=== PATIENT | female | born 1995 | race Caucasian/White ===

== ENCOUNTER 2020-09-27 18:53 | Emergency (ER) | payer OTHER ==
[2020-09-27 19:01] VITALS: RESP 20; TEMP 98.7
--- NOTE | 2020-09-27 19:34 | ED ---
General Adult HPI - General Chief complaint: Shortness of Breath Stated complaint: Covid+/sob Time Seen by Provider: 09/27/20 19:24 Source: patient, RN notes reviewed Mode of arrival: ambulatory Limitations: no limitations - History of Present Illness Initial comments: Patient is a 25-year-old female that presents to emergency department status post Covid positive test. She noted that she started showing symptoms last Friday, but was tested on Friday results on Friday. She went to [facility] and they discharged her with dexamethasone, rivaroxaban, and clindamycin. Sheis she has been feeling better over the last 10 days. She was in no apparent distress or pain while sitting up in bed during exam and interview. She noted that she's not short of breath at the moment it more exertional. She denied any chest pain headache nausea vomiting diarrhea constipation fever fatigue chills. - Related Data Home Medications Medication Instructions Recorded Confirmed No Known Home Medications 09/27/20 09/27/20 Allergies Allergy/AdvReac Type Severity Reaction Status Date / Time No Known Allergies Allergy Verified 09/27/20 21:24 Review of Systems ROS Statement: Those systems with pertinent positive or pertinent negative responses have been documented in the HPI. ROS Other: All systems not noted in ROS Statement are negative. Past Medical History Past Medical History: No Reported History History of Any Multi-Drug Resistant Organisms: None Reported Past Surgical History: No Surgical Hx Reported Past Psychological History: No Psychological Hx Reported Smoking Status: Never smoker Past Alcohol Use History: None Reported Past Drug Use History: None Reported General Exam Limitations: no limitations General appearance: alert, in no apparent distress, obese Head exam: Present: atraumatic, normocephalic, normal inspection Eye exam: Present: normal appearance, PERRL, EOMI. Absent: scleral icterus, conjunctival injection, periorbital swelling ENT exam: Present: normal exam, mucous membranes moist Neck exam: Present: normal inspection. Absent: tenderness, meningismus, lymphadenopathy Respiratory exam: Present: normal lung sounds bilaterally. Absent: respiratory distress, wheezes, rales, rhonchi, stridor Cardiovascular Exam: Present: regular rate, normal rhythm, normal heart sounds. Absent: systolic murmur, diastolic murmur, rubs, gallop, clicks GI/Abdominal exam: Present: soft, normal bowel sounds. Absent: distended, tenderness, guarding, rebound, rigid Extremities exam: Present: normal inspection, full ROM, normal capillary refill. Absent: tenderness, pedal edema, joint swelling, calf tenderness Neurological exam: Present: alert, oriented X3, CN II-XII intact Psychiatric exam: Present: normal affect, normal mood Skin exam: Present: warm, dry, intact, normal color. Absent: rash Course Vital Signs 09/27/20 18:57 Temperature 98.7 F Pulse Rate 105 H Respiratory 20 Rate Blood Pressure 101/67 O2 Sat by Pulse 95 Oximetry Medical Decision Making - Medical Decision Making 25-year-old female presenting with mild shortness of breath and Covid positive. Chest x-ray, Covid RapidTest, urinalysis ordered. Urinalysis ordered due to patient being diagnosed with a UTI, but on the lab she brought the did not show UTI. Covid positive. Patient agreed to monoclonal antibody therapy. Case discussed with Dr. Bran, patient can discharge after monoclonal antibody therapy. - Lab Data Lab Results 09/27/20 09/27/20 Range/Units 19:48 19:48 Urine Color Yellow Urine Appearance Clear (Clear) Urine pH 6.5 (5.0-8.0) Ur Specific [place] 1.020 (1.001-1.035) Urine Protein Trace H (Negative) Urine Glucose (UA) Negative (Negative) Urine Ketones Negative (Negative) Urine Blood Small H (Negative) Urine Nitrite Negative (Negative) Urine Bilirubin Negative (Negative) Urine Urobilinogen <2.0 (<2.0) mg/dL Ur Leukocyte Esterase Large H (Negative) Urine RBC 3 (0-5) /hpf Urine WBC 20 H (0-5) /hpf Ur Squamous Epith Cells <1 (0-4) /hpf Urine Bacteria Rare H (None) /hpf Urine Mucus Rare H (None) /hpf Coronavirus (PCR) Detected A (Not Detectd) - Radiology Data Radiology results: report reviewed, image reviewed Chest x-ray: Left lower lobe pneumonia. Disposition Clinical Impression: Pneumonia due to COVID-19 virus Disposition: HOME SELF-CARE Condition: Stable Instructions (If sedation given, give patient instructions): Coronavirus Disease 2019 (COVID-19) Additional Instructions: Please return to the Emergency Department if symptoms worsen or any other concerns. Follow-up with primary care 1-2 days. Conservative management home with rest, fluids, anti-inflammatories for aches pa ins and fever. Is patient prescribed a controlled substance at d/c from ED?: No Referrals: Maxx Jones DO [Primary Care Provider] - 1-2 days Time of Disposition: 22:25
[2020-09-27 20:15] LABS: Appearance,Urine Clear (Clear); Bacteria,Urine Rare /hpf; Bilirubin,Urine Negative (Negative); Blood,Urine Small (Negative); Color,Urine Yellow; Glucose,Urine (UA) Negative (Negative); Ketones,Urine Negative (Negative); Leukocyte Esterase,Urine Large (Negative); Mucus,Urine Rare /hpf; Nitrite,Urine Negative (Negative); PH, Urine 6.5 (5.0-8.0); Protein,Urine Trace (Negative); RBC,Urine 3 /hpf (0-5); Squamous Epithelial Cell,Urine <1 /hpf (0-4); Urobilinogen,Urine <2.0 mg/dL (<2.0); WBC,Urine 20 /hpf (0-5)
--- NOTE | 2020-09-27 20:16 | XR ---
EXAMINATION TYPE: XR chest 2V DATE OF EXAM: 09/27/2020 COMPARISON: NONE HISTORY: Short of breath TECHNIQUE: 2 views FINDINGS: There is airspace infiltrate left lower lobe. Right lung is clear. Heart and mediastinum ar e normal. There is no pleural effusion. IMPRESSION: Left lower lobe pneumonia.
[2020-09-27] MEDS ORDERED: BAMLANIVIMAB 700 MG in SODIUM CHLORIDE 0.9% 50 ML IVPB ONE (21:30)
[2020-09-27 23:19] VITALS: BP 110/62; PULSE 98
== END 2020-09-27 23:20 | disposition home or self-care (01) ==
LOC: EC 18:53
DX: U07.1 COVID-19 (principal); J12.82 Pneumonia due to coronavirus disease 2019
CPT/HCPCS: 81001; 87086; 87635; 71046; 99283; Q0239

== ENCOUNTER 2021-01-14 21:46 | Emergency (ER) | payer OTHER ==
[2021-01-14 21:52] VITALS: BP 127/79; PULSE 103; RESP 20; TEMP 98.1
[2021-01-14] MEDS ORDERED: BACITRACIN OINT 1 EACH PACKET TOPICAL STA (22:19)
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
[2021-01-14] MEDS ORDERED: IBUPROFEN 600 MG STARTER PACK 4 TAB BTL PO STA (22:24)
== END 2021-01-14 22:50 | disposition home or self-care (01) ==
LOC: EC 21:46
DX: T22.211A Burn of second degree of right forearm, initial encounter (principal); T22.20XA Burn of second degree of shoulder and upper limb, except wrist and hand, unspecified site, initial encounter; T31.0 Burns involving less than 10% of body surface; S00.81XA Abrasion of other part of head, initial encounter; X08.8XXA Exposure to other specified smoke, fire and flames, initial encounter
CPT/HCPCS: 99283

== ENCOUNTER 2022-05-29 22:16 | Emergency (ER) | payer OTHER ==
[2022-05-29 22:28] VITALS: BP 136/81; PULSE 96; RESP 16; TEMP 98
[2022-05-29] MEDS ORDERED: FAMOTIDINE 20 MG TAB PO STA (22:51)
[2022-05-29] MEDS ORDERED: methylPREDNISolone SOD SUCCI 125 MG/2 ML VIAL IM ONE (22:51)
--- NOTE | 2022-05-29 23:35 | ED ---
Allergic Reaction HPI - General Chief complaint: Allergic Reaction Stated complaint: Hives,Swollen eye Time Seen by Provider: 05/29/22 22:28 Source: patient Mode of arrival: ambulatory Limitations: no limitations - History of Present Illness Initial Comments: Patient is a 27-year-old female presenting for evaluation of ALLERGIC reaction. Patient states that since she woke up at today she has had swelling of the right eye. She states that when she woke up from a nap this afternoon she had a full body rash. Patient has been taking Benadryl today with little improvement. No difficulty breathing or swallowing. Patient denies any new foods, medications, or products. No abdominal pain, nausea, vomiting. No fever, chills, chest pain, palpitations, weakness. - Related Data Previous Rx's Medication Instructions Recorded Bacitracin/Polymyx Oint 1 applic TOPICAL BID #15 gm 01/14/21 [Polysporin Oint] Ibuprofen [Motrin] 600 mg PO Q8HR PRN #30 tab 01/14/21 methylPREDNISolone Dose Pack 4 mg PO DIRECTED #1 packet 05/29/22 [Medrol Dose Pack] Allergies Allergy/AdvReac Type Severity Reaction Status Date / Time No Known Allergies Allergy Verified 05/29/22 22:24 Review of Systems ROS Statement: Those systems with pertinent positive or pertinent negative responses have been documented in the HPI. ROS Other: All systems not noted in ROS Statement are negative. Past Medical History Past Medical History: Pneumonia Additional Past Medical History / Comment(s): Covid 10/01 History of Any Multi-Drug Resistant Organisms: None Reported Past Surgical History: No Surgical Hx Reported Past Psychological History: No Psychological Hx Reported Smoking Status: Never smoker Past Alcohol Use History: None Reported Past Drug Use History: None Reported General Exam Limitations: no limitations General appearance: alert, in no apparent distress Head exam: Present: atraumatic, normocephalic, normal inspection Eye exam: Present: PERRL, EOMI, periorbital swelling (Right-sided). Absent: scleral icterus, conjunctival injection, periorbital tenderness ENT exam: Present: normal oropharynx Expanded Throat exam: normal inspection. negative: tonsillomegaly Neck exam: Present: normal inspection, full ROM. Absent: tenderness Respiratory exam: Present: normal lung sounds bilaterally. Absent: respiratory distress, wheezes, rales, rhonchi, stridor Cardiovascular Exam: Present: regular rate, normal rhythm, normal heart sounds. Absent: systolic murmur, diastolic murmur, rubs, gallop, clicks Neurological exam: Present: alert, oriented X3, CN II-XII intact Psychiatric exam: Present: normal affect, normal mood Skin exam: Present: warm, dry, intact, normal color. Absent: rash Course Vital Signs 05/29/22 22:24 Temperature 98 F Pulse Rate 96 Respiratory 16 Rate Blood Pressure 136/81 O2 Sat by Pulse 98 Oximetry Medical Decision Making - Medical Decision Making Patient is a 27-year-old female presenting for evaluation of ALLERGIC reaction. Patient has had a swollen right eye throughout the day, no tenderness or discharge, no trauma. Patient started having hives in the middle of the day. No difficulty breathing or swallowing. Heart and lungs are clear to auscultation, normal posterior pharynx with no tonsillomegaly or enlarged uvula. Patient took 50 mg of Benadryl prior to arrival, here in the ER she is given Solu-Medrol and Pepcid. She'll be discharged with Medrol Dosepak and instructed to continue taking Benadryl as needed but to avoid taking Benadryl prior to driving or operating heavy machinery. Follow-up with PCP. Report back to ER with any new or worsening symptoms. Discussed return parameters and answered all questions. Patient conveyed verbal understanding and agreed to the plan. I discussed this case in detail with my attending Dr. Almeida Disposition Clinical Impression: Allergic reaction Disposition: HOME SELF-CARE Condition: Good Instructions (If sedation given, give patient instructions): Urticaria (ED), General Allergic Reaction (ED) Additional Instructions: Follow-up with PCP. Report back to ER with any new or worsening symptoms. Take medication as prescribed. Take Benadryl as needed, may cause drowsiness do not take before driving or operating heavy machinery. Prescriptions: methylPREDNISolone Dose Pack [Medrol Dose Pack] 4 mg PO DIRECTED #1 packet Is patient prescribed a controlled substance at d/c from ED?: No Referrals: Maxx Jones DO [Primary Care Provider] - 1-2 days Time of Disposition: 23:35
== END 2022-05-29 23:45 | disposition home or self-care (01) ==
LOC: EC 22:16
DX: T78.40XA Allergy, unspecified, initial encounter (principal); Z86.16 Personal history of COVID-19
CPT/HCPCS: 99283 ×2; 96372 ×2; J2930

== ENCOUNTER 2022-06-09 13:27 | Emergency (ER) | payer OTHER ==
[2022-06-09 13:37] VITALS: RESP 16; TEMP 98
[2022-06-09] MEDS ORDERED: ACETAMINOPHEN TAB 325 MG TAB PO STA (13:48)
[2022-06-09] MEDS ORDERED: IBUPROFEN 600 MG TAB PO STA (13:48)
--- NOTE | 2022-06-09 13:52 | ED ---
General Adult HPI - General Chief complaint: Extremity Injury, Lower Stated complaint: R ankle injury Time Seen by Provider: 06/09/22 13:44 Source: patient, family, RN notes reviewed, old records reviewed Mode of arrival: ambulatory Limitations: no limitations - History of Present Illness Initial comments: This is a pleasant 27-year-old female presents to the emergency room with complaints of right ankle pain. Patient states she rolled it last night around 9:00 on uneven concrete. Has been able to ambulate however had increased pain with ambulation today. -: hour(s) (15) Location: right, lower extremity (ankle) Severity scale (1-10): 5 Quality: constant Consistency: constant Improves with: immobilization, rest Worsens with: movement, other (ambulation) Associated Symptoms: denies other symptoms Treatments Prior to Arrival: NSAID (0800) - Related Data Previous Rx's Medication Instructions Recorded Bacitracin/Polymyx Oint 1 applic TOPICAL BID #15 gm 01/14/21 [Polysporin Oint] Ibuprofen [Motrin] 600 mg PO Q8HR PRN #30 tab 01/14/21 methylPREDNISolone Dose Pack 4 mg PO DIRECTED #1 packet 05/29/22 [Medrol Dose Pack] Ibuprofen [Motrin] 600 mg PO Q8HR PRN #30 tab 06/09/22 Allergies Allergy/AdvReac Type Severity Reaction Status Date / Time No Known Allergies Allergy Verified 05/29/22 22:24 Review of Systems ROS Statement: Those systems with pertinent positive or pertinent negative responses have been documented in the HPI. ROS Other: All systems not noted in ROS Statement are negative. Past Medical History Past Medical History: Pneumonia Additional Past Medical History / Comment(s): Covid 10/01 History of Any Multi-Drug Resistant Organisms: None Reported Past Surgical History: No Surgical Hx Reported Past Psychological History: No Psychological Hx Reported Smoking Status: Never smoker Past Alcohol Use History: None Reported Past Drug Use History: None Reported General Exam Limitations: no limitations General appearance: alert, in no apparent distress Head exam: Present: atraumatic Eye exam: Absent: scleral icterus, conjunctival injection, periorbital swelling Respiratory exam: Absent: respiratory distress, accessory muscle use Cardiovascular Exam: Present: regular rate Extremities exam: Present: full ROM, normal capillary refill. Absent: pedal edema, calf tenderness Right Knee exam: Present: full ROM, full knee extension. Absent: tenderness, swelling, ecchymosis Lower Leg exam: Present: full ROM. Absent: tenderness, swelling, laceration, ecchymosis, deformity, crepitus, erythema, palpable cord, Homans' sign Ankle exam: Present: tenderness (Lateral malleolus). Absent: swelling, abrasion, laceration, ecchymosis, deformity, crepitus, dislocation, erythema Foot/Toe exam: Present: full ROM, tenderness. Absent: swelling, abrasion, laceration, ecchymosis, deformity, crepitus, dislocation, erythema, calcaneal t enderness Neurovascular tendon exam: Present: no vascular compromise. Absent: abnormal cap refill, extremity cold to touch, pallor, foot drop Neurological exam: Present: alert, oriented X3 Psychiatric exam: Present: normal affect, normal mood Skin exam: Present: warm, dry, normal color. Absent: cyanosis, diaphoretic, petechiae, pallor Course Vital Signs 06/09/22 13:35 Temperature 98 F Pulse Rate 82 Respiratory 16 Rate Blood Pressure 138/85 O2 Sat by Pulse 93 L Oximetry Medical Decision Making - Medical Decision Making Patient presents after rolling her ankle yesterday. Increased pain with ambulation. She is able to ambulate in the emergency room. X-ray right ankle interpreted by me shows no acute fracture or dislocation. Radiologist interpretation negative right ankle exam. X-ray of the right foot interpreted by me shows no evidence of fracture. Radiologist interpretation mild soft tissue swelling of the forefoot no evidence of fracture. Patient has no forefoot pain. She was placed in a ankle stirrup. Directed to rest ice elevate and take Tylenol and Motrin for pain. Follow-up with primary care doctor this week. She is agreeable to this plan of care. Case discussed with Dr. Fang. Disposition Clinical Impression: Ankle pain, right Disposition: HOME SELF-CARE Condition: Good Instructions (If sedation given, give patient instructions): Ankle Sprain (ED) Additional Instructions: Rest, ice, elevate, and wear ankle splint as applied. Follow-up with your primary care doctor this week. Tylenol and/or Motrin as needed for pain or discomfort. Return to the emergency room with any new or concerning symptoms. Prescriptions: Ibuprofen [Motrin] 600 mg PO Q8HR PRN #30 tab PRN Reason: Pain Is patient prescribed a controlled substance at d/c from ED?: No Referrals: Maxx Jones DO [Primary Care Provider] - 1-2 days Time of Disposition: 14:57
--- NOTE | 2022-06-09 14:29 | XR ---
EXAMINATION TYPE: XR foot complete RT DATE OF EXAM: 06/09/2022 COMPARISON: NONE HISTORY: Foot pain TECHNIQUE: 3 views FINDINGS: There is mild soft tissue swelling of the forefoot. No fracture seen. Joint spaces are norm al. IMPRESSION: Soft tissue swelling. No fracture.
--- NOTE | 2022-06-09 14:30 | XR ---
EXAMINATION TYPE: XR ankle complete RT DATE OF EXAM: 06/09/2022 COMPARISON: NONE HISTORY: Pain TECHNIQUE: 3 views FINDINGS: Ankle mortise is anatomic. No fracture nor dislocation. Joint spaces are normal. IMPRESSION: Negative right ankle exam.
[2022-06-09 15:31] VITALS: BP 122/78; PULSE 78
== END 2022-06-09 15:31 | disposition home or self-care (01) ==
LOC: EC 13:27
DX: M25.571 Pain in right ankle and joints of right foot (principal); Z86.16 Personal history of COVID-19; X50.9XXA Other and unspecified overexertion or strenuous movements or postures, initial encounter; Y92.89 Other specified places as the place of occurrence of the external cause
CPT/HCPCS: 99283

== ENCOUNTER 2024-03-06 10:32 | Emergency (ER) | payer OTHER ==
--- NOTE | 2024-04-01 08:38 | US ---
Report Patient: Sandra Gore Ordering Physician: Unknown, Unknown ID: [id number] Phone, Pager: Phone: N/A Pager: N/A : 1995 Age/Gender: 29Y, N/A Primary Location: N/A Procedure: US OB <=14 wks transvag Study Date: 03/06/2024 12:31:00 PM EXAMINATION TYPE: Ultrasound OB <= 14 weeks transvaginal DATE OF EXAM: 03/06/2024 3:38 PM COMPARISON: NONE CLINICAL INDICATION: 29-year-old female with light vaginal bleeding for one day, positive t est EXAM PERFORMED: Transabdominal and transvaginal EXAM MEASUREMENTS: GESTATIONAL AGE / DATING Dates by LMP: (5 weeks/4 days) EDC: 11/02/2024 Dates by Current Scan for: Unable to date FINDINGS: MATERNAL ANATOMY Uterus: Retroverted measuring 7.6 x 4.6 x 4.1 cm. Endometrial stripe thickness of 5 mm. No intrauteri ne /gestational sac is identified. Right Ovary: Small measuring 2.6 x 2.6 x 1.7 cm for a volume of 5.7 mL. Left Ovary: 4.1 x 2.7 x 2.6 cm for a volume of 5.1 mL. There is a 1.9 cm complex cyst within with het erogeneous pleural-based nodule measuring 1.7 cm. This shows no internal vascularity. Post CDS / Adnexa: No evident adnexal abnormality. Presence of free fluid: Trace IMPRESSION: 1. No intrauterine identified. Recommend serial beta hCG and ultrasound follow-up to ensure the appearance of a normal intrauterine . Currently, differential considerations include to o early to visualize , failed , and nonvisualized ectopic . 2. Suspect a 1.9 cm hemorrhagic cyst/corpus luteum of the left ovary. This can also be reassessed at follow-up.
== END 2024-03-06 15:30 | disposition home or self-care (01) ==
LOC: EC 10:32
DX: O03.9 Complete or unspecified spontaneous abortion without complication (principal)
CPT/HCPCS: 76801; 76817; 86850; 86900; 86901; 99284